=== PATIENT | female | born 1980 | race Caucasian/White ===

== ENCOUNTER 2016-10-28 11:13 | Emergency (ER) | payer BC ==
[~2016-10-28] VITALS: Ht 167.6 cm; Wt 60.0 kg
[2016-10-28 11:15] VITALS: BP 119/69; PULSE 75; RESP 18; TEMP 98.7; O2SAT 99
--- NOTE | 2016-10-28 11:20 | PD ---
Physical Exam Time Seen by Provider: 11:18 Narrative Pt presents to the emergency department for evaluation of right foot pain s/p injury that occurred yesterday. Bruising noted over the right dorsal lateral foot. VSS. Awaiting bed placement. Data Data Last Documented VS Vital Signs Date Time Temp Pulse Resp B/P Pulse Ox O2 Delivery O2 Flow Rate FiO2 10/28/16 11:15 98.7 75 18 119/69 99 Room Air MDM Supervised Visit with EDVIN: Alicia Soto Oct 28, 2016 11:20
--- NOTE | 2016-10-28 11:50 | PD ---
HPI Chief Complaint: Musculoskeletal Complaint Time Seen by Provider: 11:46 Travel History International Travel<30 days: No Contact w/Intl Traveler<30days: No Traveled to known affect area: No History of Present Illness HPI 35-year-old female presents to emergency Department with complaint of right fifth toe pain, swelling and bruising after stepping on a chair yesterday and then her daughter stepping on it again last night. She denies paresthesias, loss of sensation to the affected extremity. Denies fever, vomiting. Has not taking any medications to alleviate her symptoms. Has iced and elevated it. Denies fever, vomiting. Allergies to penicillin. Has no other medical complaint. No other modifying factors or associated signs and symptoms. PFSH Past Medical History ?: Unknown LMP: // Social History Tobacco Use: No Allergies-Medications (Allergen,Severity, Reaction): Coded Allergies: Penicillin (Verified Allergy, Unknown, RASH, 10/28/16) Reported Meds & Prescriptions Reported Meds & Active Scripts Active [place] (Hydrocodone-Acetaminophen) 5-325 mg Tab 1 Tab PO Q4H PRN Ibuprofen 800 Mg Tab 800 Mg PO Q6HR PRN Review of Systems Except as stated in HPI: all other systems reviewed are Neg Physical Exam Narrative GENERAL: Well-nourished, well-developed female patient, in no acute distress SKIN: Warm and dry. HEAD: Atraumatic. Normocephalic. EYES: Pupils equal and round. No scleral icterus. No injection or drainage. ENT: Mucosa pink and moist. Airway patent. NECK: Trachea midline. CARDIOVASCULAR: Regular rate. RESPIRATORY: No accessory muscle use. GASTROINTESTINAL: Flat. MUSCULOSKELETAL: Right fifth toe is edematous and with minimal ecchymosis at the base that extends to the fifth metatarsal region; no obvious deformity; sensory intact; less than 3 second cap refill; tenderness to the fifth metatarsal region of the foot; foot is without erythema, edema. Right lower extremity supple and nontender 2+ pedal pulses sensory intact and without erythema or edema. No obvious deformities. No clubbing. No cyanosis. No edema. NEUROLOGICAL: Awake and alert. Oriented 3. No obvious cranial nerve deficits. Motor grossly within normal limits. Normal speech. PSYCHIATRIC: Appropriate mood and affect; insight and judgment normal. Data Data Last Documented VS Vital Signs Date Time Temp Pulse Resp B/P Pulse Ox O2 Delivery O2 Flow Rate FiO2 10/28/16 11:15 98.7 75 18 119/69 99 Room Air Orders Foot, Complete (Rmb5xia) (10/28/16 11:22) Shoe Post Op (10/28/16 ) Crutches (10/28/16 12:11) Shoe Cast (10/28/16 ) MDM Medical Decision Making Medical Screen Exam Complete: Yes Emergency Medical Condition: Yes Medical Record Reviewed: Yes Differential Diagnosis Fracture, sprain, contusion Narrative Course 35-year-old female with right fifth toe injury. I offered the patient a nonnarcotic in the ER and she declined. Right Foot x-ray ordered. Right foot x-ray concludes: Last 24 hours Impressions Foot X-Ray 10/28/16 1122 Signed Impressions: Service Date/Time: Friday, October 28, 2016 11:43 - CONCLUSION: Nondisplaced cortical fracture distal portion of the fifth proximal phalanx. Julio Cesar Wallace MD Postop shoe and crutches provided for support. Lortab and ibuprofen prescribed for home. Instructed patient to follow up with primary care provider. Patient verbalizes understanding and agreement with treatment plan. Patient is medically cleared and stable for discharge. Discussed reasons to return to the emergency department. Patient agrees with treatment plan. The patients vital signs are stable and the patient is stable for outpatient follow-up and treatment. Patient discharged home, stable and in no acute distress. Diagnosis Primary Impression: Toe fracture, right Qualified Code: S92.514A - Closed nondisplaced fracture of proximal phalanx of lesser toe of right foot, initial encounter Referrals: Primary Care Physician Patient Instructions: Crutch Instructions (ED), General Instructions, Toe Fracture (ED) Departure Forms: Tests/Procedures, Work Release Enter return to work date: Nov 11, 2016 Additional Instructions: Tylenol or ibuprofen as directed and as needed for pain and inflammation Rest, ice, compress, and elevate extremity to decrease pain and inflammation Crutches for support Avoid aggravating activity; increase activity as tolerated Follow-up with primary care provider Return to the emergency department immediately with worsening of symptoms Med/Other Pt SpecificInfo: Prescription(s) given Scripts Hydrocodone-Acetaminophen ([place])5-325 mg Tab1 Tab PO Q4H PRN (PAIN) #10 TAB Ref 0 Prov:Lisset Germain MD 10/28/16 Ibuprofen 800 Mg Sso975 Mg PO Q6HR PRN (PAIN) #30 TAB Ref 0 Prov:Alicia Jordan 10/28/16 Disposition: 01 DISCHARGE HOME Condition: Stable Alicia Jordan Oct 28, 2016 11:50
--- NOTE | 2016-10-28 11:52 | RADRPT ---
EXAM DATE/TIME: 10/28/2016 11:43 [facility] COMPARISON: No previous studies available for comparison. INDICATIONS : Stubbed toe yesterday, pain with weight bearing and touch. MEDICAL HISTORY : None. SURGICAL HISTORY : None. ENCOUNTER: Initial ACUITY: 2 days PAIN SCORE: 7/10 LOCATION: Right foot. FINDINGS: Three view examination of the right foot demonstrates a nondisplaced cortical fracture involving the distal portion of the fifth proximal phalanx. No joint dislocation is seen. The rest of the bony stru ctures are grossly intact. CONCLUSION: Nondisplaced cortical fracture distal portion of the fifth proximal phalanx. Julio Cesar Wallace MD on October 28, 2016 at 11:48 Board Certified Radiologist. This report was verified electronically.
[2016-10-28] MEDS ORDERED: IBUP800T23 PO (12:08)
[2016-10-28] MEDS ORDERED: NORC5TAB PO (12:15)
== END 2016-10-28 12:41 | disposition home or self-care (01) ==
LOC: NEPK 11:13
DX: S92.514A Nondisplaced fracture of proximal phalanx of right lesser toe(s), initial encounter for closed fracture (principal); W50.0XXA Accidental hit or strike by another person, initial encounter; Y93.9 Activity, unspecified; Y92.9 Unspecified place or not applicable
CPT/HCPCS: 73630; 99283; E0113; L3260